=== PATIENT | female | born 1945 | race Caucasian/White ===

== ENCOUNTER → 2016-10-28 | Outpatient (CLI) | payer MEDICARE, OTHER ==
[~2016-10-28] MED LIST: ACETAMINOPHEN PO; AMLODIPINE-BENA1 CA3 PO; CATAPRES0.1 MG PO; HYDROCODON-ACE1 EAC7 PO; LIPITOR20 MG PO; LOTENSIN20 MG PO; MAGNESIUM-VIT1 EACH PO; METOPROLOL SUCC25 MG PO; MULTI VITAMIN1 EACH PO; OMEGA-3 KRILL1 EACH PO; VITAMIN D50000 UNIT PO
--- NOTE | ~2016-10-28 | US37 ---
[facility] A Service of [facility] & [facility] / [facility] RADIOLOGY TEXT RESULTS PATIENT: JESSICA QUINTANILLA LOCATION: CNIV : 45 UNIT #: [id number] AGE: [address]: Darvin Sullivan MD SEX: F ORDER DR: [id number] [facility] [address] [place], [place] [address] [id number] O MR#: [id number] Acc #: [id number] NAME: JESSICA QUINTANILLA. : 1945 SEX: F STUDY DATE/TIME: 10/28/2016 15:52 UNIT: CNIV ROOM: STUDY DESCRIPTION: US Carotid W/Doppler Bilateral Attending Physician: Darvin Sullivan M.D. Referring Physician: Darvin Sullivan M.D. Ordering Physician: Darvin Sullivan M.D. MEDICAL IMAGING REPORT This report is preliminary unless electronic signature is present EXAM Bilateral carotid Doppler HISTORY Carotid stenosis. FINDINGS The right common carotid, internal carotid and external carotid arteries appear to be patent but there is minimal flow to no flow noted in the distal right internal carotid artery. There is moderate plaque noted in the carotid bulb and internal carotid artery. Velocity of the common carotid artery is 67 cm/sec. Peak systolic velocity of the right proximal internal carotid artery is 33 cm/sec with an end-diastolic velocity of 10 cm/sec for a ICA:CCA ratio of 0.5. External carotid artery had a velocity of 181 cm/sec. The vertebral artery is visualized with antegrade flow. The left common carotid, internal carotid and external carotid arteries are patent with mild plaque noted in the carotid bulb and internal carotid artery. Velocity of the common carotid artery is 101 cm/sec. Peak systolic velocity of the left proximal internal carotid artery is 139 cm/sec with an end-diastolic velocity of 41 cm/sec for a ICA:CCA ratio of 1.39. External carotid artery had a velocity of 153 cm/sec. The vertebral artery is visualized with antegrade flow. IMPRESSION 1. Based on velocity, less than 50% stenosis of the right internal carotid artery, although minimal flow is noted in the distal right internal carotid artery with possibility of occlusion. Clinical correlation is suggested. There is 50-69% stenosis of the left internal carotid artery. 2. Elevated velocities of the right and left external carotid artery, consistent with stenosis. [facility] A Service of [facility] & [facility] / [facility] RADIOLOGY TEXT RESULTS PATIENT: JESSICA QUINTANILLA LOCATION: [facility] : [birth year] UNIT #: [id number] AGE: [address]: Darvin Sullivan MD SEX: F ORDER DR: 3. Antegrade flow of the vertebral arteries. Dictated by... Williams Hernandez M.D. THIS IS AN ELECTRONICALLY VERIFIED REPORT Williams Hernandez M.D. at 10/30/2016 11:49 AM MITCHEL/[place] TD: 10/29/2016 18:44 JOB #: [id number] MEDICAL IMAGING REPORT Page 1 of 1 COPY
== END | disposition home or self-care (01) ==
LOC: CNIV 14:53
DX: I65.23 Occlusion and stenosis of bilateral carotid arteries (principal)
CPT/HCPCS: 93880